=== PATIENT | male | born 1975 | race Caucasian/White ===

== ENCOUNTER 2020-06-06 14:23 | Inpatient (IN) | payer OTHER ==
[2020-06-06 14:32] VITALS: BMI 33.7
[2020-06-06 15:15] LABS: BASO % 0.5 % (0-2.0); EOS % 0.4 % (0-4.5); HEMATOCRIT 42.1 % (35.4-49); HEMOGLOBIN 13.8 GM/dL (11.7-16.9); LYMPH % 14.7 % (8-40); MCH 27.6 pg (25.7-33.7); MCHC 32.7 g/dl (32.0-35.9); MEAN CELL VOLUME 84.3 fl (80-96); MEAN PLT VOLUME 7.1 fl (7.5-11.1); MONO % 6.7 % (3.8-10.2); NEUT % 77.7 % (42.8-82.8); PLATELET COUNT 66 K/MM3 (134-434); RDW 15.3 % (11.9-15.9); WHITE BLOOD COUNT 4.3 K/mm3 (4.0-10.0)
[2020-06-06] MEDS ORDERED: ACETAMINOPHEN 325 MG TABLET (FP) PO ONE (15:30)
[2020-06-06 15:39] LABS: INR 1.14 (0.83-1.09)
[2020-06-06 15:42] LABS: ACTIVATED PTT 32.7 SECONDS (25.2-36.5)
[2020-06-06 15:45] LABS: ALBUMIN 4.4 g/dl (3.4-5.0); BLOOD UREA NITROGEN 9.1 mg/dL (7-18); CALCIUM 9.6 mg/dL (8.5-10.1); MAGNESIUM 2.4 mg/dL (1.8-2.4)
[2020-06-06] MEDS ORDERED: ACETAMINOPHEN 500 MG TABLET (FP) ONE (15:45)
[2020-06-06 15:48] LABS: CREATININE 0.9 mg/dL (0.55-1.3); PHOSPHOROUS 2.5 mg/dL (2.5-4.9)
[2020-06-06 15:49] LABS: BILIRUBIN,TOTAL 2.6 mg/dL (0.2-1); TOT PROT 8.8 g/dl (6.4-8.2)
[2020-06-06 16:04] LABS: LACTIC ACID 6.4 mmol/L (0.4-2.0)
[2020-06-06] MEDS ORDERED: SODIUM CHLORIDE 0.9% 500 ML INFUS.BAG IV ONE (16:08)
[2020-06-06] MEDS ORDERED: VANCOMYCIN 1 GM in D5W (PRE-DOCKED) 1,000 MG/250 ML IVPB ONE (16:09)
[2020-06-06] MEDS ORDERED: PIPERACILLIN/TAZOB 3.375 GM 3.375 GM in DEXTROSE 5%-WATER - 50 ML IVPB ONE (16:10)
[2020-06-06 16:40] LABS: EPI CELLS 11 /uL (0-25.1); HYALINE CASTS 3 /uL (0-3.1); URINE APPEARANCE CLEAR; URINE BACTERIA 416 /uL (0-1359); URINE BILIRUBIN 1+ (NEGATIVE); URINE COLOR DK YELLOW; URINE GLUCOSE (UA) NEGATIVE (NEGATIVE); URINE KETONE 1+ (NEGATIVE); URINE LEUK ESTERASE NEGATIVE (NEGATIVE); URINE NITRITE NEGATIVE (NEGATIVE); URINE PROTEIN 2+ (NEGATIVE); URINE RBC 32 /uL (0-23.9); URINE WBC 7 /uL (0-25.8)
[2020-06-06] MEDS ORDERED: VANCOMYCIN 1 GRAM (PRE-DOCKED) 1,000 MG/250 ML BAG IVPB ONE (16:42)
[2020-06-06] MEDS ORDERED: PIPERACILLIN/TAZOB 3.375 GM 3.375 GM/50 ML BAG IVPB ONE (16:43)
[2020-06-06] MEDS ORDERED: LORazepam 1 MG TABLET PO PRN (19:34)
[2020-06-06] MEDS ORDERED: THIAMINE HCL 200 MG/2 ML VIAL ONE (19:42)
[2020-06-06] MEDS ORDERED: PANTOPRAZOLE 40 MG TABLET ONE (19:43)
[2020-06-06] MEDS ORDERED: FOLIC ACID 1 MG TABLET (FP) ONE (19:43)
[2020-06-06] MEDS: PANTOPRAZOLE 40 MG TABLET PO SCH (19:55)
[2020-06-06] MEDS: FOLIC ACID 1 MG TABLET (FP) PO SCH (19:55)
[2020-06-06] MEDS: THIAMINE HCL 200 MG/2 ML VIAL IVPB SCH (19:55)
[2020-06-06] MEDS: DEXTROSE 5%-NORMAL SALINE 1,000 ML IV SCH (21:53)
[2020-06-06] MEDS ORDERED: LORazepam 1 MG TABLET ONE (23:55)
[2020-06-06] MEDS ORDERED: MULTIVITAMINS (DAILY MVI) TABLET (FP) ONE (23:55)
[2020-06-06] MEDS: MULTIVITAMINS (DAILY MVI) TABLET (FP) PO SCH (23:58)
[2020-06-06] MEDS: LORazepam 1 MG TABLET PO SCH (23:59)
[2020-06-07 05:56] LABS: BASO % 0.8 % (0-2.0); EOS % 0.5 % (0-4.5); HEMOGLOBIN 12.6 GM/dL (11.7-16.9); LYMPH % 18.3 % (8-40); MCH 28.6 pg (25.7-33.7); MCHC 34.2 g/dl (32.0-35.9); MEAN CELL VOLUME 83.5 fl (80-96); MEAN PLT VOLUME 7.1 fl (7.5-11.1); NEUT % 67.4 % (42.8-82.8); PLATELET COUNT 44 K/MM3 (134-434); RBC 4.43 M/mm3 (4.00-5.60); RDW 15.5 % (11.9-15.9); WHITE BLOOD COUNT 3.2 K/mm3 (4.0-10.0)
[2020-06-07 06:07] LABS: INR 1.2 (0.83-1.09); PROTHROMBIN TIME (PATIENT) 14.5 SEC (9.7-13.0)
[2020-06-07 06:22] LABS: POTASSIUM 3.2 mmol/L (3.5-5.1)
[2020-06-07 06:25] LABS: ALBUMIN 3.7 g/dl (3.4-5.0); BLOOD UREA NITROGEN 9.1 mg/dL (7-18); MAGNESIUM 2.4 mg/dL (1.8-2.4)
[2020-06-07 06:28] LABS: CREATININE 0.8 mg/dL (0.55-1.3); PHOSPHOROUS 3.2 mg/dL (2.5-4.9)
[2020-06-07] MEDS: LORazepam 1 MG TABLET PO SCH ×4 (06:28→23:30)
[2020-06-07 06:29] LABS: BILIRUBIN,TOTAL 2.9 mg/dL (0.2-1); TOT PROT 7.4 g/dl (6.4-8.2)
[2020-06-07 06:36] LABS: CALCIUM 8.1 mg/dL (8.5-10.1)
[2020-06-07] MEDS ORDERED: ENOXAPARIN NA (PORCINE) 40 MG/0.4 ML DISP.SYRIN SQ SCH (10:00)
[2020-06-07] MEDS ORDERED: PIPERACILLIN/TAZOB 3.375 GM 3.375 GM in DEXTROSE 5%-WATER - 50 ML IVPB SCH (10:00)
[2020-06-07] MEDS ORDERED: DEXTROSE 5%-WATER - 50 ML IVPB ONE ×2 (10:11→16:27)
[2020-06-07] MEDS ORDERED: PIPERACILLIN/TAZOBACTAM 3.375 GM VIAL IVPB ONE ×2 (10:11→16:27)
[2020-06-07] MEDS: FOLIC ACID 1 MG TABLET (FP) PO SCH (10:32)
[2020-06-07] MEDS: PANTOPRAZOLE 40 MG TABLET PO SCH (10:33)
[2020-06-07] MEDS: MULTIVITAMINS (DAILY MVI) TABLET (FP) PO SCH (10:33)
[2020-06-07] MEDS: THIAMINE HCL 200 MG/2 ML VIAL IVPB SCH (10:33)
[2020-06-07] MEDS: PIPERACILLIN/TAZOB 3.375 GM 3.375 GM in DEXTROSE 5%-WATER - 50 ML IVPB SCH ×2 (10:33→17:42)
[2020-06-07] MEDS: KCL 10 MEQ IVPB 10 MEQ/100 ML INFUS.BAG IVPB SCH ×2 (14:37→18:51)
[2020-06-07] MEDS: levETIRAcetam 500 MG TABLET (FP) PO SCH ×2 (14:37→21:19)
[2020-06-07] MEDS ORDERED: POTASSIUM CHLORIDE TABS 20 MEQ TABLET.ER (FP) PO ONE (17:45)
[2020-06-07] MEDS: DEXTROSE 5%-NORMAL SALINE 1,000 ML IV SCH (19:00)
[2020-06-08] MEDS: DEXTROSE 5%-NORMAL SALINE 1,000 ML IV SCH (00:52)
[2020-06-08] MEDS ORDERED: PIPERACILLIN/TAZOBACTAM 3.375 GM VIAL IVPB ONE ×2 (00:59→09:13)
[2020-06-08] MEDS ORDERED: DEXTROSE 5%-WATER - 50 ML IVPB ONE ×2 (00:59→09:14)
[2020-06-08] MEDS: PIPERACILLIN/TAZOB 3.375 GM 3.375 GM in DEXTROSE 5%-WATER - 50 ML IVPB SCH (01:03)
[2020-06-08] MEDS: LORazepam 1 MG TABLET PO SCH ×3 (05:46→17:27)
[2020-06-08 09:22] LABS: BASO % 0.8 % (0-2.0); EOS % 3.1 % (0-4.5); HEMATOCRIT 35.7 % (35.4-49); HEMOGLOBIN 12.1 GM/dL (11.7-16.9); MCH 28.5 pg (25.7-33.7); MCHC 33.8 g/dl (32.0-35.9); MEAN CELL VOLUME 84.2 fl (80-96); MEAN PLT VOLUME 7.4 fl (7.5-11.1); MONO % 10.2 % (3.8-10.2); NEUT % 59.9 % (42.8-82.8); PLATELET COUNT 52 K/MM3 (134-434); RBC 4.24 M/mm3 (4.00-5.60); RDW 15.2 % (11.9-15.9); WHITE BLOOD COUNT 2.5 K/mm3 (4.0-10.0)
[2020-06-08 09:25] LABS: INR 1.21 (0.83-1.09); PROTHROMBIN TIME (PATIENT) 14.6 SEC (9.7-13.0)
[2020-06-08] MEDS: FOLIC ACID 1 MG TABLET (FP) PO SCH (09:25)
[2020-06-08] MEDS: MULTIVITAMINS (DAILY MVI) TABLET (FP) PO SCH (09:25)
[2020-06-08] MEDS: levETIRAcetam 500 MG TABLET (FP) PO SCH ×2 (09:26→21:07)
[2020-06-08] MEDS: PANTOPRAZOLE 40 MG TABLET PO SCH (09:26)
[2020-06-08] MEDS: THIAMINE HCL 200 MG/2 ML VIAL IVPB SCH (09:26)
[2020-06-08 09:29] LABS: POTASSIUM 3.2 mmol/L (3.5-5.1)
[2020-06-08 09:32] LABS: ALBUMIN 3.2 g/dl (3.4-5.0); BLOOD UREA NITROGEN 6.3 mg/dL (7-18)
[2020-06-08 09:33] LABS: CALCIUM 7.8 mg/dL (8.5-10.1); MAGNESIUM 2.4 mg/dL (1.8-2.4)
[2020-06-08 09:35] LABS: CREATININE 0.7 mg/dL (0.55-1.3); PHOSPHOROUS 3.1 mg/dL (2.5-4.9)
[2020-06-08 09:37] LABS: BILIRUBIN,TOTAL 2.1 mg/dL (0.2-1); TOT PROT 6.7 g/dl (6.4-8.2)
[2020-06-08] MEDS ORDERED: POTASSIUM CHLORIDE TABS 20 MEQ TABLET.ER (FP) PO ONE (10:58)
[2020-06-08] MEDS ORDERED: PT OWN MED DRAWER 7, Y5N ONE ×2 (12:13→12:24)
[2020-06-08] MEDS: KCL 10 MEQ IVPB 10 MEQ/100 ML INFUS.BAG IVPB SCH ×2 (12:27→17:23)
[2020-06-08 13:07] LABS: HEP B CORE AB, TOT Negative (Negative)
[2020-06-08] MEDS ORDERED: SODIUM CHLORIDE 0.45%/POT 20 MEQ/1,000 ML INFUS.BAG IV SCH (20:00)
[2020-06-09] MEDS ORDERED: LORazepam 0.5 MG TABLET PO PRN
[2020-06-09] MEDS: LORazepam 1 MG TABLET PO SCH (00:30)
[2020-06-09] MEDS: LORazepam 0.5 MG TABLET PO SCH ×4 (06:16→23:39)
[2020-06-09 09:20] LABS: POTASSIUM 3.5 mmol/L (3.5-5.1)
[2020-06-09 09:21] LABS: INR 1.15 (0.83-1.09); PROTHROMBIN TIME (PATIENT) 13.9 SEC (9.7-13.0)
[2020-06-09 09:22] LABS: BASO % 0.6 % (0-2.0); CALCIUM 7.8 mg/dL (8.5-10.1); HEMATOCRIT 36.9 % (35.4-49); HEMOGLOBIN 12.1 GM/dL (11.7-16.9); LYMPH % 25.9 % (8-40); MCHC 32.8 g/dl (32.0-35.9); MEAN CELL VOLUME 85.4 fl (80-96); MEAN PLT VOLUME 7.6 fl (7.5-11.1); MONO % 9.5 % (3.8-10.2); PLATELET COUNT 51 K/MM3 (134-434); RBC 4.33 M/mm3 (4.00-5.60); RDW 15.5 % (11.9-15.9); WHITE BLOOD COUNT 2.6 K/mm3 (4.0-10.0)
[2020-06-09 09:23] LABS: ALBUMIN 3.2 g/dl (3.4-5.0); BLOOD UREA NITROGEN 5.5 mg/dL (7-18); MAGNESIUM 2.2 mg/dL (1.8-2.4)
[2020-06-09 09:26] LABS: CREATININE 0.5 mg/dL (0.55-1.3); PHOSPHOROUS 3.3 mg/dL (2.5-4.9)
[2020-06-09 09:27] LABS: BILIRUBIN,TOTAL 2.2 mg/dL (0.2-1); TOT PROT 6.8 g/dl (6.4-8.2)
[2020-06-09 09:51] LABS: URINE APPEARANCE CLEAR; URINE BILIRUBIN NEGATIVE (NEGATIVE); URINE COLOR YELLOW; URINE GLUCOSE (UA) NEGATIVE (NEGATIVE); URINE KETONE NEGATIVE (NEGATIVE); URINE LEUK ESTERASE NEGATIVE (NEGATIVE); URINE NITRITE NEGATIVE (NEGATIVE); URINE PROTEIN NEGATIVE (NEGATIVE); URINE UROBILINOGEN 0.2 mg/dL (0.2-1.0)
[2020-06-09 09:57] LABS: EPI CELLS 4 /uL (0-25.1); HYALINE CASTS 0 /uL (0-3.1); METHADONE, UR NEGATIVE ng/ml (CUTOFF=300); URINE BACTERIA 16 /uL (0-1359); URINE RBC 8 /uL (0-23.9); URINE WBC 3 /uL (0-25.8)
[2020-06-09 10:00] LABS: URINE BARBITURATES NEGATIVE ng/ml (CUTOFF=200)
[2020-06-09 10:04] LABS: OPIATES, URI NEGATIVE ng/ml (CUTOFF=300); URINE BENZODIAZEPINES NEGATIVE ng/ml (CUTOFF=200)
[2020-06-09 10:05] LABS: PHENCYCLIDINE,URINE NEGATIVE ng/ml (CUTOFF=25)
[2020-06-09 10:07] LABS: COCAINE, UR NEGATIVE ng/ml (CUTOFF=300); URINE AMPHETAMINES NEGATIVE ng/ml (CUTOFF=500)
[2020-06-09] MEDS: levETIRAcetam 500 MG TABLET (FP) PO SCH ×2 (10:10→21:24)
[2020-06-09] MEDS: MULTIVITAMINS (DAILY MVI) TABLET (FP) PO SCH (10:10)
[2020-06-09] MEDS: FOLIC ACID 1 MG TABLET (FP) PO SCH (10:11)
[2020-06-09] MEDS: THIAMINE HCL 200 MG/2 ML VIAL IVPB SCH (10:11)
[2020-06-09] MEDS ORDERED: SODIUM CHLORIDE 500 ML IV STA (15:57)
[2020-06-09 19:36] LABS: HIV INTERPRETATION NEGATIVE (NEGATIVE)
[2020-06-10] MEDS ORDERED: LORazepam 0.5 MG TABLET PO ONE (05:00)
[2020-06-10] MEDS: FOLIC ACID 1 MG TABLET (FP) PO SCH (09:46)
[2020-06-10] MEDS: levETIRAcetam 500 MG TABLET (FP) PO SCH ×2 (09:46→21:28)
[2020-06-10] MEDS: MULTIVITAMINS (DAILY MVI) TABLET (FP) PO SCH (09:46)
[2020-06-10] MEDS: THIAMINE HCL 200 MG/2 ML VIAL IVPB SCH (09:46)
[2020-06-10 10:43] LABS: BASO % 0.7 % (0-2.0); HEMATOCRIT 38.5 % (35.4-49); HEMOGLOBIN 12.9 GM/dL (11.7-16.9); LYMPH % 22.7 % (8-40); MCH 28.5 pg (25.7-33.7); MCHC 33.5 g/dl (32.0-35.9); MEAN PLT VOLUME 7.4 fl (7.5-11.1); MONO % 9.7 % (3.8-10.2); NEUT % 62.9 % (42.8-82.8); PLATELET COUNT 67 K/MM3 (134-434); RBC 4.53 M/mm3 (4.00-5.60); RDW 15.2 % (11.9-15.9); WHITE BLOOD COUNT 2.9 K/mm3 (4.0-10.0)
[2020-06-10 10:50] LABS: INR 1.17 (0.83-1.09); PROTHROMBIN TIME (PATIENT) 14.3 SEC (9.7-13.0)
[2020-06-10 12:01] LABS: POTASSIUM 3.4 mmol/L (3.5-5.1)
[2020-06-10 12:09] LABS: CALCIUM 8.2 mg/dL (8.5-10.1)
[2020-06-10 12:10] LABS: ALBUMIN 3.4 g/dl (3.4-5.0); BLOOD UREA NITROGEN 6.6 mg/dL (7-18); MAGNESIUM 2.1 mg/dL (1.8-2.4)
[2020-06-10 12:13] LABS: CREATININE 0.7 mg/dL (0.55-1.3)
[2020-06-10 12:14] LABS: BILIRUBIN,TOTAL 2.2 mg/dL (0.2-1); TOT PROT 7.1 g/dl (6.4-8.2)
[2020-06-10] MEDS ORDERED: POTASSIUM CHLORIDE TABS 20 MEQ TABLET.ER (FP) PO ONE (14:35)
[2020-06-11] MEDS: MULTIVITAMINS (DAILY MVI) TABLET (FP) PO SCH (09:30)
[2020-06-11] MEDS: levETIRAcetam 500 MG TABLET (FP) PO SCH (09:30)
[2020-06-11] MEDS: FOLIC ACID 1 MG TABLET (FP) PO SCH (09:31)
[2020-06-11 09:45] LABS: BASO % 0.7 % (0-2.0); EOS % 4.6 % (0-4.5); HEMATOCRIT 41.5 % (35.4-49); HEMOGLOBIN 13.7 GM/dL (11.7-16.9); LYMPH % 22.5 % (8-40); MCH 28.4 pg (25.7-33.7); MCHC 33.1 g/dl (32.0-35.9); MEAN CELL VOLUME 85.8 fl (80-96); MEAN PLT VOLUME 8.1 fl (7.5-11.1); MONO % 10.8 % (3.8-10.2); NEUT % 61.4 % (42.8-82.8); PLATELET COUNT 82 K/MM3 (134-434); RBC 4.83 M/mm3 (4.00-5.60); RDW 15.6 % (11.9-15.9); WHITE BLOOD COUNT 3.4 K/mm3 (4.0-10.0)
[2020-06-11 10:07] LABS: POTASSIUM 3.7 mmol/L (3.5-5.1)
[2020-06-11 10:16] LABS: CALCIUM 8.6 mg/dL (8.5-10.1)
[2020-06-11 10:17] LABS: ALBUMIN 3.8 g/dl (3.4-5.0); BLOOD UREA NITROGEN 7.8 mg/dL (7-18); MAGNESIUM 2.2 mg/dL (1.8-2.4)
[2020-06-11 10:19] LABS: PHOSPHOROUS 3.4 mg/dL (2.5-4.9)
[2020-06-11 10:20] LABS: BILIRUBIN,TOTAL 2.6 mg/dL (0.2-1); CREATININE 0.7 mg/dL (0.55-1.3)
[2020-06-11 10:21] LABS: TOT PROT 7.9 g/dl (6.4-8.2)
[2020-06-11 10:24] LABS: INR 1.19 (0.83-1.09); PROTHROMBIN TIME (PATIENT) 14.3 SEC (9.7-13.0)
[2020-06-11 14:40] VITALS: BP 120/64; PULSE 62; TEMP 98.7
[2020-06-13 15:08] LABS: TOTAL PROTEIN, URINE 6.7 mg/dL (Not Estab.)
[2020-06-13 19:07] LABS: TOTAL PROTEIN, URINE 10.8 mg/dL (Not Estab.)
== END 2020-06-11 18:43 | disposition home or self-care (01) | DRG 53 ==
LOC: JER 14:23 → JERBED 18:27 → J6S 06-07 04:53
PROVIDERS: ADMIT Internal Medicine; ATTEND Internal Medicine
PROC: 4A10X4Z Monitoring of Central Nervous Electrical Activity, External Approach (ICD-10-PCS; principal; 2020-06-07)
DX: G40.509 Epileptic seizures related to external causes, not intractable, without status epilepticus (principal); E87.2 Acidosis; R16.2 Hepatomegaly with splenomegaly, not elsewhere classified; D69.6 Thrombocytopenia, unspecified; R74.01 Elevation of levels of liver transaminase levels; R00.0 Tachycardia, unspecified; K80.20 Calculus of gallbladder without cholecystitis without obstruction; K76.0 Fatty (change of) liver, not elsewhere classified; E87.6 Hypokalemia; D72.819 Decreased white blood cell count, unspecified; R80.9 Proteinuria, unspecified; E80.6 Other disorders of bilirubin metabolism; K70.10 Alcoholic hepatitis without ascites; F10.239 Alcohol dependence with withdrawal, unspecified
CPT/HCPCS: 36415; 70450-TC; 70551-TC; 71045-TC-FY; 71250-TC; 74176-TC; 74181-TC; 76705-TC; 80053; 80307; 81003; 82248; 82550; 82553; 82570; 82746; 82962; 83010; 83605; 83615; 83690; 83735; 84100; 84155; 84156; 84157; 84165; 84166; 84443; 84484; 85025; 85045; 85610; 85730; 86140; 86704; 86706; 86707; 86708; 86709; 86803; 86850; 86900; 86901; 87040; 87086; 87340; 87389; 93005; 93010; 93306-TC; 93971-TC; 95816; 97116-GP; 97161-GP; 99291; C9803; J3480; Q9967; U0003